=== PATIENT | female | born 1935 | race Caucasian/White ===

== ENCOUNTER 2017-03-24 19:26 | Observation (INO) | payer MEDICARE, BC ==
[~2017-03-24 19:26] MED LIST: BONIVA2.5 MG; CALCIUM600 MG; MULTIVITAMIN1 TAB; ZOFRAN ODT4 MG/UDTAB PO; [UNRECOGNIZED DRUG - REMARK] PO
[2017-03-24 20:15] LABS: BASO % 0.1 % (0-2); EOS % 0.2 % (0-7); HGB-HEMOGLOBIN 13.9 gm/dl (12.0-15.5); IMMATURE GRANULOCYTES ABSOLUTE 0.02 tho/cmm (0-0.03); IMMATURE GRANULOCYTES PERCENT 0.2 % (0-0.3); LYMPH % 13.6 % (20-45); LYMPH ABSOLUTE COUNT 1.1 tho/cmm (0.8-4.5); MCH (MEAN CORPUSCULAR HGB) 32.5 pg (28.0-32.0); MCHC MEAN CORPUSCULAR HGB CONC 34.8 % (32.0-36.0); MCV (MEAN CELL VOLUME) 93.5 fl (82.0-96.0); MEAN PLATELET VOLUME 9.4 cmc (9.4-12.4); MONO % 4.7 % (0-12); MONOCYTE ABSOLUTE COUNT 0.4 tho/cmm (0.0-1.2); NEUTROPHIL ABSOLUTE COUNT 6.5 tho/cmm (1.6-8.0); NEUTROPHIL-AUTOMATED 6.5 tho/cmm (1.6-8.0); NEUTROPHILS % 81.2 % (40-80); PLATELET COUNT 249 tho/cmm (150-450); RED BLOOD COUNT 4.28 mil/cmm (4.00-5.20); RED CELL DISTRIBUTION WIDTH 12.7 % (12.4-16.4)
[2017-03-24 20:34] LABS: ANION GAP 16 mmol/L (0-20); BLOOD UREA NITROGEN 17 mg/dl (6-24); CALCIUM 8.2 mg/dl (8.5-10.5); CARBON DIOXIDE-VENOUS 24 mmol/L (22-32); CHLORIDE 93 mmol/l (96-110); CREATININE 0.66 mg/dl (0.50-1.10); GLUCOSE 144 mg/dL (70-110); POTASSIUM 3.6 mmol/L (3.7-5.1); SODIUM 129 mmol/L (135-145); eGFR VALUE FOR BLACK >90 mL/Min
[2017-03-24] MEDS ORDERED: AMBIEN10 M1 PO (20:36)
[2017-03-24] MEDS ORDERED: POLYETHYLENE G255 G1 PO (20:37)
[2017-03-24 20:39] LABS: URINE APPEARANCE CLEAR; URINE BILIRUBIN NEGATIVE (NEG); URINE BLOOD MODERATE (NEG); URINE COLOR YELLOW; URINE GLUCOSE (UA) SMALL (NEG); URINE KETONE LARGE (NEG); URINE LEUKOCYTE ESTERASE NEGATIVE (NEG); URINE NITRITE NEGATIVE (NEG); URINE PROTEIN MODERATE (NEG)
[2017-03-24] MEDS ORDERED: BONIVA150 M1 PO (20:42)
[2017-03-24] MEDS ORDERED: LOPRESSOR50 M1 PO (20:43)
[2017-03-24 20:47] LABS: URINE AMORPHOUS 1+
[2017-03-25 00:47] LABS: POTASSIUM 4.1 mmol/L (3.7-5.1)
[2017-03-25 03:34] LABS: POTASSIUM 3.9 mmol/L (3.7-5.1)
[2017-03-25 06:29] LABS: MAGNESIUM 2.2 mg/dl (1.8-2.6)
[2017-03-25 06:34] LABS: TSH-THYROID STIMULATING HORM. 1.75 uIU/ml (0.40-3.80)
[2017-03-25 07:59] LABS: ANION GAP 12 mmol/L (0-20); BLOOD UREA NITROGEN 11 mg/dl (6-24); CALCIUM 7.4 mg/dl (8.5-10.5); CARBON DIOXIDE-VENOUS 24 mmol/L (22-32); CHLORIDE 98 mmol/l (96-110); CREATININE 0.62 mg/dl (0.50-1.10); GLUCOSE 116 mg/dL (70-110); SODIUM 130 mmol/L (135-145); eGFR VALUE FOR BLACK >90 mL/Min
[2017-03-25] MEDS ORDERED: ASPIRIN81 M1 PO (14:13)
[2017-05-25] MEDS ORDERED: NORVASC5 M2 PO (08:44)
[2017-05-25] MEDS ORDERED: ZOFRAN4 M2 PO/SL (11:41)
[2017-05-25] MEDS ORDERED: LOPRESSOR50 M1 PO (14:13)
== END 2017-03-25 15:00 ==
LOC: EDMED 19:26 → EMR2 21:39 → CCU 03-25 00:50
PROVIDERS: Emergency Medicine; Nurse Practitioner Family; Physician Assistant; ADMIT Internal Medicine Cardiovascular Disease
DX: R42 Dizziness and giddiness (principal); R55 Syncope and collapse; I47.2 Ventricular tachycardia; I49.3 Ventricular premature depolarization; E87.6 Hypokalemia; I45.81 Long QT syndrome; E83.42 Hypomagnesemia; E87.1 Hypo-osmolality and hyponatremia; J06.9 Acute upper respiratory infection, unspecified; Z79.899 Other long term (current) drug therapy; Z88.0 Allergy status to penicillin; Z88.1 Allergy status to other antibiotic agents; Z85.3 Personal history of malignant neoplasm of breast; Z82.49 Family history of ischemic heart disease and other diseases of the circulatory system; Z90.89 Acquired absence of other organs; Z90.710 Acquired absence of both cervix and uterus; Z90.49 Acquired absence of other specified parts of digestive tract; Z90.721 Acquired absence of ovaries, unilateral; Z90.10 Acquired absence of unspecified breast and nipple; Z98.890 Other specified postprocedural states
CPT/HCPCS: A9500; G0378; J0282; J2405; J2785; J3475; J3480; J7030; P9612

== ENCOUNTER 2017-04-09 19:10 | Emergency (ER) | payer MEDICARE, BC ==
[~2017-04-09 19:10] MED LIST changes: +AMBIEN10 M1 PO; +ASPIRIN81 M1 PO; +BONIVA150 M1 PO; +LOPRESSOR50 M1 PO; +POLYETHYLENE G255 G1 PO
[2017-04-09] MEDS ORDERED: ZYRTEC1010 PO (19:35)
[2017-04-09] MEDS ORDERED: ALLEGRA ALLERGY60 M1 PO (19:36)
[2017-04-09 20:31] LABS: BASO % 0.4 % (0-2); EOS % 4.3 % (0-7); EOSINOPHIL ABSOLUTE COUNT 0.2 tho/cmm (0.0-0.7); HCT-HEMATOCRIT 40.7 % (34.0-49.0); HGB-HEMOGLOBIN 13.6 gm/dl (12.0-15.5); IMMATURE GRANULOCYTES ABSOLUTE 0.01 tho/cmm (0-0.03); IMMATURE GRANULOCYTES PERCENT 0.2 % (0-0.3); LYMPH % 28.6 % (20-45); LYMPH ABSOLUTE COUNT 1.6 tho/cmm (0.8-4.5); MCH (MEAN CORPUSCULAR HGB) 32.7 pg (28.0-32.0); MCHC MEAN CORPUSCULAR HGB CONC 33.4 % (32.0-36.0); MCV (MEAN CELL VOLUME) 97.8 fl (82.0-96.0); MEAN PLATELET VOLUME 9.3 cmc (9.4-12.4); MONO % 12.1 % (0-12); MONOCYTE ABSOLUTE COUNT 0.7 tho/cmm (0.0-1.2); NEUTROPHIL ABSOLUTE COUNT 3.1 tho/cmm (1.6-8.0); NEUTROPHIL-AUTOMATED 3.1 tho/cmm (1.6-8.0); NEUTROPHILS % 54.4 % (40-80); PLATELET COUNT 245 tho/cmm (150-450); RED BLOOD COUNT 4.16 mil/cmm (4.00-5.20); WHITE BLOOD COUNT 5.6 tho/cmm (4.0-10.0)
[2017-04-09 20:47] LABS: ANION GAP 14 mmol/L (0-20); BLOOD UREA NITROGEN 27 mg/dl (6-24); CALCIUM 8.8 mg/dl (8.5-10.5); CARBON DIOXIDE-VENOUS 27 mmol/L (22-32); CHLORIDE 105 mmol/l (96-110); CREATININE 1.35 mg/dl (0.50-1.10); GLUCOSE 117 mg/dL (70-110); POTASSIUM 4.5 mmol/L (3.7-5.1); SODIUM 141 mmol/L (135-145); eGFR VALUE FOR BLACK 42 mL/Min
[2017-04-09] MEDS ORDERED: NORVASC5 M2 PO (21:14)
[2017-05-25] MEDS ORDERED: NORVASC5 M2 PO (08:44)
[2017-05-25] MEDS ORDERED: ZOFRAN4 M2 PO/SL (11:41)
[2017-05-25] MEDS ORDERED: LOPRESSOR50 M1 PO (14:13)
== END 2017-04-09 21:29 ==
LOC: EDMED 19:10
PROVIDERS: Emergency Medicine
DX: I10 Essential (primary) hypertension (principal); Z79.899 Other long term (current) drug therapy